=== PATIENT | male | born 1980 | race Caucasian/White ===

== ENCOUNTER 2016-10-08 10:07 | Emergency (ER) | payer SELFPAY ==
--- NOTE | ~2016-10-08 | ER ---
PATIENT'S NAME: LISHA HEMPHILL [facility] AGE: 35 Y [address] ROOM: [place] [address] LOCATION: [facility] ADMIT DATE: 10/08/2016 ER/Outpatient Report DISCHARGE DATE: 10/08/2016 FAMILY PHYSICIAN: PHYSICIAN, NO ATTENDING PHYSICIAN: River Aguiar Admission date and time documented on the medical record. I saw the patient at 1025 hours. CHIEF COMPLAINT: Left great toe injury. HISTORY OF PRESENT ILLNESS: This patient is a 35-year-old male who about 2 weeks ago, injured his left great toe. Part of his nail was torn off, now he has redness and swelling consistent with ingrown toenail. No present open wound or draining wound. There is no red streaking up his foot. Quite tender, swollen, and inflamed. No other injuries. HOME MEDICATIONS: None. ALLERGIES: CONTRAST DYE, PENICILLIN, FLU SHOTS. SOCIAL HISTORY: Smokes marijuana, tobacco, occasional intake of alcohol. SIGNIFICANT PAST MEDICAL HISTORY: Negative except for tobacco and marijuana use. OPERATIONS: Bilateral hand surgery, cholecystectomy, tonsillectomy, bilateral knee arthroscopy, and right ankle surgery. REVIEW OF SYSTEMS: All systems reviewed by me are negative with the exception of those discussed in the history of present illness. PHYSICAL EXAMINATION: VITAL SIGNS: Temperature 97 tympanic, pulse 66, respirations 18, blood pressure 155/68, O2 saturation on room air is 94%. EXTREMITIES: On examination of left great toe, the patient has a toenail that has been torn and that area now is swollen, red, and tender, consistent with an ingrown toenail. There is no red streaking. Neurovascular is intact. PATIENT'S NAME: LISHA HEMPHILL [facility] AGE: 35 Y [address] ROOM: [place] [address] LOCATION: [facility] ADMIT DATE: 10/08/2016 ER/Outpatient Report DISCHARGE DATE: 10/08/2016 FAMILY PHYSICIAN: PHYSICIAN, NO ATTENDING PHYSICIAN: River Aguiar Pulse intact. No open wounds. No draining wounds. IMPRESSION: Left toe injury with ingrown toenail at the present time causing pain and swelling. PLAN: The patient was discharged from the emergency department. Ice and elevation as needed. Soak the foot in Eps[place] or warm soapy water 20-30 minutes 1-2 times a day. Neosporin ointment applied to the toe area. We will put him on clindamycin 300 mg 4 times a day for a week. If no improvement, may need to see a tar pot worker with Dr. Soto is in [place] and a tar pot worker in [place]. Follow up with personal physician as needed. Discussion ensued with the patient concerning my findings and recommendations, he understands. MD JONELLE BREAUX/modl /[id number] d: 10/08/16 1623 t: 10/08/16 1739, OUTPATIENT REPORT
== END 2016-10-08 10:41 | disposition disaster alternative care site (69) ==
LOC: GACC 10:07
DX: S91.212A Laceration without foreign body of left great toe with damage to nail, initial encounter (principal); L60.0 Ingrowing nail; Z88.1 Allergy status to other antibiotic agents; Z91.041 Radiographic dye allergy status; Z90.49 Acquired absence of other specified parts of digestive tract; Z90.89 Acquired absence of other organs; Z98.890 Other specified postprocedural states; X58.XXXA Exposure to other specified factors, initial encounter

== ENCOUNTER 2016-11-20 14:48 | Emergency (ER) | payer SELFPAY ==
--- NOTE | ~2016-11-20 | ER ---
PATIENT'S NAME: LISHA HEMPHILL [facility] AGE: 35 Y [address] ROOM: [place] [address] LOCATION: [facility] ADMIT DATE: 11/20/2016 ER/Outpatient Report DISCHARGE DATE: FAMILY PHYSICIAN: PHYSICIAN, NO ATTENDING PHYSICIAN: Riaz Sandoval TIME OF ADMISSION: 14:48. TIME OF EVALUATION: 15:15. CHIEF COMPLAINT: Increased anxiety. HISTORY OF PRESENT ILLNESS: Lisha is a 35-year-old male, who presented to the Emergency Room with his toddler daughter, with concerns of increased anxiety. The patient reports he has noticed he has just felt very anxious, very irritable, and does not feel it is fear towards his work or his daughter. He previously had been on Effexor XR 75 mg one p.o. daily about a year ago, but had gone off it. It does sound like it was related to financial concerns, and also he is currently on probation. He reports that probation was not wanting him to be on these medicines. He currently does take care of his daughter human intelligence, and also has some support with his parents. The patient denies any suicidal ideations, plans, or having any feelings to hurt himself or somebody else. He is just here as he is wanting to get back on the medicines, and to follow up with somebody to help him. The patient denies any recent illness, any injuries, or any other concerns. PAST MEDICAL HISTORY: 1. Anxiety. 2. Postoperative cholecystectomy. 3. Postoperative tonsillectomy. 4. Postoperative bilateral knee arthroscopy. 5. Postoperative right ankle surgery. 6. Postoperative bilateral hand surgery. CURRENT MEDICATIONS: Tylenol and/or ibuprofen p.r.n. SOCIAL HISTORY: The patient does smoke, only approximately a few cigarettes in a month. He denies any drug or alcohol use. PATIENT'S NAME: LISHA HEMPHILL [facility] AGE: 35 Y [address] ROOM: [place] [address] LOCATION: [facility] ADMIT DATE: 11/20/2016 ER/Outpatient Report DISCHARGE DATE: FAMILY PHYSICIAN: PHYSICIAN, NO ATTENDING PHYSICIAN: Riaz Sandoval Lisha does live by himself. He does have his parents to help him as needed. He does have a daughter, who is approximately 15 months of age. FAMILY HISTORY: Not obtained. REVIEW OF SYSTEMS: All systems were reviewed by myself and were negative with the exception of those noted in the HPI. PHYSICAL EXAMINATION: VITAL SIGNS: Current height is 6 feet 1 inch. Pulse was 94, respirations were 16, his blood pressure was 135/83, and he was 97% on room air. GENERAL: The patient is alert and cooperative. He does not make a lot of eye contact. He is calm and pleasant. SKIN: Overall is within normal limits. HEENT: Head: Normocephalic and atraumatic. Eyes: Sclerae are nonicteric. Pupils are equal, round, and reactive to light. Mouth and Throat: Oropharynx is clear. NECK: Supple. No lymphadenopathy. CHEST AND LUNGS: Lung sounds are clear throughout. HEART: Regular rate and rhythm without murmur. EXTREMITIES: Lower extremities, deep tendon reflexes are intact. NEUROLOGIC: No focal deficits are noted. Mood and affect, the patient is cooperative. No irritability or increased anxiety was noted here in the Emergency Room. He does have insight. He denies any suicidal ideation and/or planning. LABORATORY DATA AND DIAGNOSTIC IMAGING: Please note, there were no labs or x-rays performed with this visit. ASSESSMENT: 1. Acute anxiety. 2. Situational stress. PLAN: I was able to visit with Lisha for a little while. He does have some increased stress in trying to be caregiver for his daughter, working, and also with probation. I do feel there is a true degree of anxiety there, and he recognizes this and does not want to be angry at his work, in treating the public also with his daughter. [facility], previously on Effexor, but this is not on the four-dollar list. I did call around to some pharmacies, and we did write a script for BuSpar 5 mg one p.o. daily #60 with no refills, and this is on the four-dollar list. We did get him the card for [facility] in which he will follow up here in the next 1 to 2 weeks, PATIENT'S NAME: LISHA HEMPHILL [facility] AGE: 35 Y [address] ROOM: [place] [address] LOCATION: [facility] ADMIT DATE: 11/20/2016 ER/Outpatient Report DISCHARGE DATE: FAMILY PHYSICIAN: PHYSICIAN, CHANTEL ATTENDING PHYSICIAN: Riaz Sandoval and that way, he will have someone to follow for his refills. We did talk about serious reactions including increased anger, increased depression, and/or extra-motor movements, and he would need to stop this immediately. The patient does ride his bike often, and he will continue to exercise. We also did give a number for a Support Group that may be helpful for him also. The patient verbalizes understanding. He will get these filled, and I did write a note stating that he does need to stay on these medicines daily. 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 FRANK WORTHINGTON APRN FOR MD BRYON LIRA/modl /[id number] P d: 11/20/16 2251 t: 12/01/16 0702, OUTPATIENT REPORT
== END 2016-11-20 15:53 | disposition disaster alternative care site (69) ==
LOC: GMED 14:48
DX: F41.9 Anxiety disorder, unspecified (principal); F43.9 Reaction to severe stress, unspecified; F17.210 Nicotine dependence, cigarettes, uncomplicated; Z90.49 Acquired absence of other specified parts of digestive tract; Z90.89 Acquired absence of other organs; Z98.890 Other specified postprocedural states; Z79.899 Other long term (current) drug therapy

== ENCOUNTER 2017-01-08 08:21 | Emergency (ER) | payer SELFPAY ==
--- NOTE | ~2017-01-08 | ER ---
PATIENT'S NAME: LISHA HEMPHILL [facility] AGE: 36 Y [address] ROOM: [place] [address] LOCATION: ED ADMIT DATE: 01/08/2017 ER/Outpatient Report DISCHARGE DATE: 01/08/2017 FAMILY PHYSICIAN: PHYSICIAN, NO ATTENDING PHYSICIAN: Tamy Palumbo TIME OF ARRIVAL: 0821 hours. TIME SEEN: 0852 hours. IDENTIFICATION: A 36-year-old male. CHIEF COMPLAINT: Numbness all over body. HISTORY OF PRESENT ILLNESS: The patient said 4 days ago, he developed symptoms constant, feels like he has tingling in his hands, feet, and lips, a little bit dizzy today, and now the numbness is radiating up to where his "chest kind of hurts." He does have a history of anxiety. He was started on BuSpar here in the emergency room on , which he said has been helping. [facility], but has no further appointment there. He is a single dad of 1-year- old child. He said that his girlfriend just left them. He has a 10-year-old daughter from previous marriage that currently today with his mother in [place] on vacation. 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 ALLERGIES: NO KNOWN DRUG ALLERGIES. CURRENT MEDICATIONS: BuSpar 5 mg b.i.d. MEDICAL PROBLEMS: Anxiety. PRIOR SURGERY: Cholecystectomy, T and A, and multiple surgeries to his left ankle from trauma. SOCIAL HISTORY: PATIENT'S NAME: LISHA HEMPHILL [facility] AGE: 36 Y [address] ROOM: [place] [address] LOCATION: ED ADMIT DATE: 01/08/2017 ER/Outpatient Report DISCHARGE DATE: 01/08/2017 FAMILY PHYSICIAN: PHYSICIAN, NO ATTENDING PHYSICIAN: Tamy Palumbo The patient lives here in [place]. Social history as noted above. Tobacco use, denies currently. Alcohol use, denies currently. Drug use, denies currently. REVIEW OF SYSTEMS: All systems reviewed and negative other than what is noted in the HPI. FAMILY HISTORY: No pertinent family history identified. PHYSICAL EXAMINATION: VITAL SIGNS: 6 feet 1 inch, weight 78.6 kg. Blood pressure 136/82, pulse 71, respirations 20, temp 97, sats 97% on room air. GENERAL: A 36-year-old male, in no acute distress. HEENT: Head is normocephalic and atraumatic. Ears, TMs translucent both ears. Eyes, pupils equal and reactive to light and accommodation. Extraocular movements intact. Nose, mucosa pink. No lesions or drainage. Mouth, no lesions. Pharynx benign. NECK: Supple. No lymphadenopathy. LUNGS: Clear to auscultation. HEART: Regular rate and rhythm. ABDOMEN: Bowel sounds present. Soft, nondistended. No hepatosplenomegaly. No palpable masses. Nontender. SKIN: [place], warm, and dry. No lesions or rashes noted. NEURO: The patient is alert oriented x4. Cranial nerves 2 through 12 grossly intact. Motor strength 5/5 throughout. Sensation is intact to light touch. Head CT, normal. Chemistry panel normal. Cardiac enzymes x1 negative. TSH 1.850. CBC is normal. EKG normal sinus rhythm at 58 beats per minute. No acute ST elevation or depression. CRP less than 0.29. West Nile virus pending. IMPRESSION: 1. Numbness. 2. Stress and anxiety. PLAN: I do feel the tingling sensation is hyperventilation and more related to his stress and anxiety. He will get help or he is able to as far as caring for his daughter. He will continue his current medications and follow up as soon as [facility] to see if he needs any medication adjustment. I also advised if numbness continues, to follow up with Neurology as needed. The patient understands and agrees, and all questions have been answered. PATIENT'S NAME: LISHA HEMPHILL [facility] AGE: 36 Y [address] ROOM: [place] [address] LOCATION: ED ADMIT DATE: 01/08/2017 ER/Outpatient Report DISCHARGE DATE: 01/08/2017 FAMILY PHYSICIAN: PHYSICIAN, NO ATTENDING PHYSICIAN: Tamy Palumbo MD KAROLINA MCCOY/josafat /[id number] d: 01/08/17 1729 t: 01/09/17 1735, OUTPATIENT REPORT
[2017-01-08 09:11] LABS: BASOPHIL % 0.2 %; EOSINOPHIL # 0.1 K/uL (0.0-0.5); EOSINOPHIL % 1.1 %; HEMOGLOBIN 14.6 g/dL (12.0-17.0); LYMPHOCYTE # 2.5 K/uL (0.8-4.0); LYMPHOCYTE % 38.3 %; MCH 31.5 pg (27.0-34.0); MCHC 34.8 gm/dL (32.0-36.5); MCV 90.5 fl (83.0-98.0); MONOCYTE # 0.5 K/uL (0.0-1.0); MONOCYTE % 7.7 %; NEUTROPHIL # (ANC) 3.4 K/uL (1.4-9.0); NEUTROPHIL % 52.7 %; NRBC % 0 /100WBC (0-0.00); PLATELET COUNT 149 K/uL (150-450); RBC 4.64 M/uL (4.00-6.00); RDW-CV 12.4 % (11.9-14.6); WBC 6.5 K/uL (4.0-11.0)
[2017-01-08 09:33] LABS: ALBUMIN 3.7 gm/dL (3.5-5.0); ALK PHOS 80 IU/L (33-138); ALT 28 IU/L (12-78); ANION GAP 10.2 (10.0-19.0); AST 19 IU/L (10-40); BLOOD UREA NITROGEN 20 mg/dL (6-24); CHLORIDE 110 mMol/L (96-110); CO2 26 mMol/L (22-32); CPK 139 IU/L (35-332); CREATININE 0.9 mg/dL (0.6-1.3); POTASSIUM 4.2 mMol/L (3.7-5.1); SODIUM 142 mMol/L (135-145); TOTAL BILIRUBIN 0.5 mg/dL (0.0-1.5); TOTAL PROTEIN 6.2 g/dL (6.0-8.4)
== END 2017-01-08 11:26 | disposition disaster alternative care site (69) ==
LOC: GMED 08:21
PROVIDERS: Family Medicine
DX: R20.0 Anesthesia of skin (principal); F43.9 Reaction to severe stress, unspecified; F41.9 Anxiety disorder, unspecified; Z79.899 Other long term (current) drug therapy; Z90.49 Acquired absence of other specified parts of digestive tract; Z90.89 Acquired absence of other organs

== ENCOUNTER 2017-01-20 15:41 | Emergency (ER) | payer SELFPAY ==
--- NOTE | ~2017-01-20 | ER ---
PATIENT'S NAME: LISHA HEMPHILL [facility] AGE: 36 Y [address] ROOM: [place] [address] LOCATION: [facility] ADMIT DATE: 01/20/2017 ER/Outpatient Report DISCHARGE DATE: 01/20/2017 FAMILY PHYSICIAN: PHYSICIAN, NO ATTENDING PHYSICIAN: Mookie Kirk TIME OF ARRIVAL: 1540 hours. TIME OF EXAM: 1540 hours. CHIEF COMPLAINT: Chest pain. HISTORY OF PRESENT ILLNESS: The patient states he has had midchest pain that radiates down his left arm for the past week. He was seen here on 01/08/2017 and diagnosed with anxiety issues. Lab work was all negative. He states the pain has not changed, does not change with eating, denies feeling short of breath, does get somewhat diaphoretic, but he states that has to do with his lifestyle, he is very active, exercises on a regular basis. He reports he has had a history of 4 CT's in the past and that is when he lived in [place]. He does not currently have a primary provider and is not currently on any meds for cardiac issues. ALLERGIES: NO KNOWN ALLERGIES. CURRENT MEDICATIONS: BuSpar. PAST MEDICAL HISTORY: Anxiety and CT. PAST SURGICAL HISTORY: He has had multiple orthopedic surgeries, cholecystectomy, and tonsillectomy. SOCIAL HISTORY: He states he quit smoking in 2014. Denies use of drugs and alcohol. REVIEW OF SYSTEMS: Negative other than those mentioned in the HPI. PHYSICAL EXAMINATION: VITAL SIGNS: He weighed 75.9 kg. Blood pressure is 141/75, pulse of 93, PATIENT'S NAME: LISHA HEMPHILL [facility] AGE: 36 Y [address] ROOM: [place] [address] LOCATION: [facility] ADMIT DATE: 01/20/2017 ER/Outpatient Report DISCHARGE DATE: 01/20/2017 FAMILY PHYSICIAN: PHYSICIAN, NO ATTENDING PHYSICIAN: Mookie Kirk respirations 12, temp of 98.5, tympanic, and O2 sat was 98% on room air. GENERAL: He is awake, alert, and oriented x4. SKIN: [place], warm, and dry. RESPIRATIONS: Even and nonlabored. Lung sounds are clear throughout. HEART: Regular rate and rhythm. He is tender to palpate on the chest wall. EMERGENCY DEPARTMENT COURSE: The patient arrived per [facility] ambulance. He was able to move from the cart to the bed without increased discomfort. He has a saline lock in his right hand. LABORATORY DATA: Lab work was completed. CBC is within normal limits. Chem panel is within normal limits. CPK is 99. CK-MB is 0.6. Troponin is negative. EKG shows sinus rhythm. H. pylori does come back positive. Chest x-ray shows no acute process. IMPRESSION: H. pylori. PLAN: Home, rest, and fluids. Prescriptions were written for amoxicillin, Flagyl, and omeprazole. He states he has an [facility] and encouraged him to keep that appointment for followup. If symptoms worsen during the night, welcome to return to the ER as needed. He verbalized understanding. MARITA BLACKMON APRN FOR DO SYDNIE HARVEY/josafat /[id number] d: 01/20/17 2322 t: 01/23/17 0156, OUTPATIENT REPORT
[2017-01-20 16:21] LABS: BASOPHIL % 0.2 %; EOSINOPHIL % 0.7 %; HEMATOCRIT 41.8 % (37.0-53.0); HEMOGLOBIN 14.4 g/dL (12.0-17.0); IMMATURE GRANULOCYTE % 0.2 %; LYMPHOCYTE # 1.8 K/uL (0.8-4.0); LYMPHOCYTE % 30.3 %; MCH 30.6 pg (27.0-34.0); MCHC 34.4 gm/dL (32.0-36.5); MCV 88.7 fl (83.0-98.0); MONOCYTE # 0.5 K/uL (0.0-1.0); MONOCYTE % 8.8 %; MPV 11.4 fl (9.4-12.4); NEUTROPHIL # (ANC) 3.5 K/uL (1.4-9.0); NEUTROPHIL % 59.8 %; NRBC % 0 /100WBC (0-0.00); PLATELET COUNT 168 K/uL (150-450); RBC 4.71 M/uL (4.00-6.00); RDW-CV 11.9 % (11.9-14.6); WBC 5.9 K/uL (4.0-11.0)
[2017-01-20 16:30] LABS: PROTIME 10.5 SECONDS (9.8-11.4); PTT 26 SECONDS (25-32)
[2017-01-20 16:40] LABS: ALBUMIN 3.8 gm/dL (3.5-5.0); ALK PHOS 86 IU/L (33-138); ALT 23 IU/L (12-78); ANION GAP 11.2 (10.0-19.0); AST 16 IU/L (10-40); BLOOD UREA NITROGEN 19 mg/dL (6-24); CALCIUM 8.4 mg/dL (8.5-10.5); CHLORIDE 113 mMol/L (96-110); CO2 24 mMol/L (22-32); CPK 99 IU/L (35-332); CREATININE 0.9 mg/dL (0.6-1.3); MAGNESIUM 2.2 mg/dL (1.8-2.6); POTASSIUM 4.2 mMol/L (3.7-5.1); SODIUM 144 mMol/L (135-145); TOTAL BILIRUBIN 0.3 mg/dL (0.0-1.5); TOTAL PROTEIN 6.8 g/dL (6.0-8.4)
== END 2017-01-20 17:22 | disposition disaster alternative care site (69) ==
LOC: GMED 15:41
PROVIDERS: Emergency Medicine
DX: R07.9 Chest pain, unspecified (principal); B96.81 Helicobacter pylori [H. pylori] as the cause of diseases classified elsewhere; F41.9 Anxiety disorder, unspecified; Z87.891 Personal history of nicotine dependence; Z79.899 Other long term (current) drug therapy; Z90.49 Acquired absence of other specified parts of digestive tract; Z90.89 Acquired absence of other organs; Z98.890 Other specified postprocedural states